=== PATIENT | male | born 1985 | race African-American/Black ===

== ENCOUNTER 2017-09-24 12:52 | Inpatient (IN) | payer SELFPAY ==
[~2017-09-24] VITALS: Ht 188 cm; Wt 176.5 kg
[2017-09-24] MEDS ORDERED: SODIUM CHLORIDE 0.9% 1,000 ML IVB ONE (13:13)
[2017-09-24] MEDS ORDERED: ONDANSETRON HCL 4 MG/2 ML VIAL IV ONE (13:15)
[2017-09-24] MEDS ORDERED: SODIUM CHLORIDE 0.9% 1,000 ML IV ONE ×2 (13:30→17:00)
[2017-09-24 13:59] LABS: Basophils # (auto) 0 uL; Basophils % (auto) 0.1 % (0.0-2.0); Eosinophils # (auto) 0 uL; Eosinophils % (auto) 0.1 % (0.0-7.0); Hematocrit 43.9 % (41.0-53.0); Hemoglobin 15.2 g/dL (13.5-17.5); Lymphocytes # (auto) 0.8 uL; Lymphocytes % (auto) 4.2 % (10.0-50.0); Mean Corpuscular Hemoglobin 29.3 pg (28.0-32.0); Mean Corpuscular Hgb Conc. 34.6 g/dL (32.0-36.0); Mean Corpuscular Volume 84.8 fL (80.0-100.0); Monocytes # (auto) 1.6 uL; Monocytes % (auto) 8.2 % (0.0-12.0); Neutrophils # (auto) 16.5 uL; Neutrophils % (auto) 87.4 % (37.0-80.0); Platelet Count (auto) 219 10^3/uL (140-450); Red Blood Cells 5.17 10^6/uL (4.5-5.90); White Blood Cell 18.9 10^3/uL (4.4-10.8)
[2017-09-24 14:15] LABS: INR 1.03 (0.9-1.15)
[2017-09-24 14:18] LABS: Albumin 3.6 g/dL (3.4-5.0); Calcium 8.6 mg/dL (8.5-10.1); Magnesium 1.7 mg/dL (1.6-2.6); Potassium 4.2 mmol/L (3.5-5.1)
[2017-09-24 14:21] LABS: Bilirubin, Total 1.4 mg/dL (0.2-1.0); Total Protein 7.7 g/dL (6.4-8.2)
[2017-09-24] MEDS ORDERED: metroNIDAZOLE 500MG/100ML 100 ML IV ONE (15:00)
[2017-09-24 16:12] LABS: Urine Amorphous Crystal FEW /hpf (None Seen); Urine Bacteria NONE SEEN /hpf (None Seen); Urine Blood Negative /uL (Negative); Urine Mucus FEW (None Seen); Urine Specific Gravity 1.033 (1.001-1.035); Urine WBC 1 /hpf (0 - 3)
[2017-09-24] MEDS ORDERED: MORPHINE SULF INJ 2 MG/ML SYRINGE 1ML IV PRN (17:00)
[2017-09-24] MEDS ORDERED: NITROGLYCERIN 0.4 MG SL TAB SL PRN (17:00)
[2017-09-24] MEDS ORDERED: TEMAZEPAM 15 MG CAP PO PRN (17:00)
[2017-09-24] MEDS ORDERED: LEVOFLOXACIN 500MG 100 ML IV ONE (17:00)
[2017-09-24] MEDS ORDERED: DOCUSATE SOD 100 MG CAP PO PRN (17:00)
[2017-09-24] MEDS ORDERED: ONDANSETRON HCL 4 MG/2 ML VIAL IV PRN (17:00)
[2017-09-24] MEDS ORDERED: ACETAMINOPHEN 325 MG TAB PO PRN ×2 (17:00)
[2017-09-24 17:47] VITALS: BP 121/72
[2017-09-24 17:54] LABS: Lactic Acid w/Reflex 2.7 mmol/L (0.4-2.0)
[2017-09-24] MEDS: SODIUM CHLORIDE 0.9% 1,000 ML IV SCH (18:38)
[2017-09-24 18:50] VITALS: BP 105/55
[2017-09-24] MEDS: ALBUTEROL SULF 2.5 MG/0.5ML(0.5%) NEB SOLN NEB SCH ×2 (18:50→23:30)
[2017-09-24] MEDS ORDERED: ALBUAER3 IN (19:43)
[2017-09-24] MEDS: HYDROcodone-ACET 5/325MG TAB PO PRN (19:58)
[2017-09-24 21:53] VITALS: BP 119/70
[2017-09-24] MEDS: metroNIDAZOLE 500MG/100ML 100 ML IV SCH (22:00)
[2017-09-24] MEDS: FAMOTIDINE 20 MG TAB PO SCH (23:10)
[2017-09-25] MEDS: HYDROcodone-ACET 5/325MG TAB PO PRN ×2 (01:17→10:11)
[2017-09-25] MEDS: SODIUM CHLORIDE 0.9% 1,000 ML IV SCH ×3 (01:20→18:54)
[2017-09-25] MEDS: metroNIDAZOLE 500MG/100ML 100 ML IV SCH ×3 (04:23→20:30)
[2017-09-25 04:53] VITALS: BP 138/78
[2017-09-25 05:48] LABS: Basophils # (auto) 0 uL; Basophils % (auto) 0.1 % (0.0-2.0); Eosinophils # (auto) 0 uL; Hematocrit 42.3 % (41.0-53.0); Hemoglobin 14.3 g/dL (13.5-17.5); Lymphocytes # (auto) 1.1 uL; Lymphocytes % (auto) 7.1 % (10.0-50.0); Mean Corpuscular Hgb Conc. 33.8 g/dL (32.0-36.0); Mean Corpuscular Volume 85.9 fL (80.0-100.0); Monocytes % (auto) 6.3 % (0.0-12.0); Neutrophils # (auto) 13.7 uL; Neutrophils % (auto) 86.5 % (37.0-80.0); Platelet Count (auto) 195 10^3/uL (140-450); Red Blood Cells 4.93 10^6/uL (4.5-5.90); Red Cell Distribution Width 14.5 % (11.8-14.3); White Blood Cell 15.9 10^3/uL (4.4-10.8)
[2017-09-25 06:02] LABS: Calcium 7.9 mg/dL (8.5-10.1); Potassium 3.9 mmol/L (3.5-5.1)
[2017-09-25 06:05] LABS: BUN/Creatinine Ratio 8.9
[2017-09-25 06:08] LABS: Bilirubin, Total 1.8 mg/dL (0.2-1.0); Total Protein 6.8 g/dL (6.4-8.2)
[2017-09-25] MEDS: ALBUTEROL SULF 2.5 MG/0.5ML(0.5%) NEB SOLN NEB SCH ×3 (06:15→19:06)
[2017-09-25 09:17] VITALS: BP 142/82
[2017-09-25] MEDS: FAMOTIDINE 20 MG TAB PO SCH ×2 (10:11→22:00)
[2017-09-25] MEDS: MULTIPLE VITAMIN TAB PO SCH (10:11)
[2017-09-25] MEDS: LEVOFLOXACIN 500MG 100 ML IV SCH (10:11)
[2017-09-25] MEDS: Glucerna Carbsteady SHAKE Vanilla 8oz PO SCH ×2 (12:17→18:54)
[2017-09-25 12:50] VITALS: BP 143/75
[2017-09-25] MEDS: MORPHINE SULFATE 4 MG/ML SYR/VIAL IV PRN ×2 (15:18→21:41)
[2017-09-25 17:16] VITALS: BP 152/87
[2017-09-25 22:00] VITALS: BP 147/92
[2017-09-26] MEDS: ALBUTEROL SULF 2.5 MG/0.5ML(0.5%) NEB SOLN NEB SCH ×3 (00:07→11:21)
[2017-09-26] MEDS ORDERED: IBUPROFEN 400 MG TAB PO ONE (01:30)
[2017-09-26] MEDS: SODIUM CHLORIDE 0.9% 1,000 ML IV SCH ×2 (02:20→08:53)
[2017-09-26] MEDS: metroNIDAZOLE 500MG/100ML 100 ML IV SCH ×2 (04:00→11:53)
[2017-09-26 05:14] VITALS: BP 122/79
[2017-09-26 06:03] LABS: Basophils # (auto) 0 uL; Basophils % (auto) 0.2 % (0.0-2.0); Eosinophils # (auto) 0 uL; Eosinophils % (auto) 0.3 % (0.0-7.0); Hematocrit 41.8 % (41.0-53.0); Hemoglobin 14.4 g/dL (13.5-17.5); Lymphocytes # (auto) 1.9 uL; Lymphocytes % (auto) 21.5 % (10.0-50.0); Mean Corpuscular Hemoglobin 29.6 pg (28.0-32.0); Mean Corpuscular Hgb Conc. 34.5 g/dL (32.0-36.0); Mean Corpuscular Volume 85.7 fL (80.0-100.0); Monocytes # (auto) 1.4 uL; Monocytes % (auto) 16.7 % (0.0-12.0); Neutrophils # (auto) 5.3 uL; Neutrophils % (auto) 61.3 % (37.0-80.0); Nucleated Red Blood Cells % 0.1 %; Platelet Count (auto) 190 10^3/uL (140-450); Red Blood Cells 4.87 10^6/uL (4.5-5.90); Red Cell Distribution Width 14.2 % (11.8-14.3); White Blood Cell 8.7 10^3/uL (4.4-10.8)
[2017-09-26 06:19] LABS: BUN/Creatinine Ratio 6.8; Calcium 8.5 mg/dL (8.5-10.1); Potassium 4.1 mmol/L (3.5-5.1)
[2017-09-26] MEDS: Glucerna Carbsteady SHAKE Vanilla 8oz PO SCH ×2 (08:54→11:56)
[2017-09-26 09:00] VITALS: BP 149/97
[2017-09-26] MEDS: FAMOTIDINE 20 MG TAB PO SCH (10:07)
[2017-09-26] MEDS: LEVOFLOXACIN 500MG 100 ML IV SCH (10:07)
[2017-09-26] MEDS: MULTIPLE VITAMIN TAB PO SCH (10:07)
[2017-09-26 13:00] VITALS: BP 137/81
[2017-09-26 16:41] VITALS: BP 137/81
[2017-09-26 17:00] VITALS: BP 135/90
== END 2017-09-26 17:08 | disposition home or self-care (01) | DRG 871 ==
LOC: ER 12:52 → EDBD 12:52 → TELE 12:53 → TELE-WESTW 18:04
PROVIDERS: ADMIT Internal Medicine; ATTEND Internal Medicine
DX: A41.9 Sepsis, unspecified organism (principal); N17.0 Acute kidney failure with tubular necrosis; E44.0 Moderate protein-calorie malnutrition; Z68.43 Body mass index [BMI] 50.0-59.9, adult; A08.4 Viral intestinal infection, unspecified; E11.21 Type 2 diabetes mellitus with diabetic nephropathy; E11.22 Type 2 diabetes mellitus with diabetic chronic kidney disease; E66.01 Morbid (severe) obesity due to excess calories; E86.0 Dehydration; F17.210 Nicotine dependence, cigarettes, uncomplicated; J45.909 Unspecified asthma, uncomplicated; K76.0 Fatty (change of) liver, not elsewhere classified; N18.3 Chronic kidney disease, stage 3 (moderate); Z82.49 Family history of ischemic heart disease and other diseases of the circulatory system; Z88.0 Allergy status to penicillin; Z83.6 Family history of other diseases of the respiratory system
CPT/HCPCS: 36415; 71045; 74176; 80048; 80053; 81001; 82150; 83605; 83690; 83735; 85025; 85610; 85730; 87040; 93005; 94640; 94761; 96361; 96365; J1956; J2405; J3490

== ENCOUNTER 2017-09-27 17:11 | Emergency (ER) | payer SELFPAY ==
[~2017-09-27] VITALS: Ht 188 cm; Wt 165.6 kg
[~2017-09-27 17:11] MED LIST: ALBUAER3 IN
[2017-09-27 17:58] LABS: Urine Bacteria NONE SEEN /hpf (None Seen); Urine Blood Negative /uL (Negative); Urine Specific Gravity 1.019 (1.001-1.035); Urine WBC 2 /hpf (0 - 3)
[2017-09-27 18:16] LABS: Basophils # (auto) 0 uL; Basophils % (auto) 0.5 % (0.0-2.0); Eosinophils # (auto) 0.2 uL; Eosinophils % (auto) 3.4 % (0.0-7.0); Hematocrit 47.8 % (41.0-53.0); Hemoglobin 16.1 g/dL (13.5-17.5); Lymphocytes # (auto) 2.2 uL; Lymphocytes % (auto) 34.8 % (10.0-50.0); Mean Corpuscular Hemoglobin 29.2 pg (28.0-32.0); Mean Corpuscular Hgb Conc. 33.8 g/dL (32.0-36.0); Mean Corpuscular Volume 86.5 fL (80.0-100.0); Monocytes # (auto) 0.5 uL; Neutrophils # (auto) 3.3 uL; Neutrophils % (auto) 53.3 % (37.0-80.0); Nucleated Red Blood Cells % 0.2 %; Platelet Count (auto) 277 10^3/uL (140-450); Red Blood Cells 5.52 10^6/uL (4.5-5.90); Red Cell Distribution Width 14.1 % (11.8-14.3); White Blood Cell 6.2 10^3/uL (4.4-10.8)
[2017-09-27 18:38] LABS: Albumin 3.5 g/dL (3.4-5.0); Bilirubin, Total 0.8 mg/dL (0.2-1.0); Calcium 8.3 mg/dL (8.5-10.1); Potassium 3.9 mmol/L (3.5-5.1); Total Protein 8.4 g/dL (6.4-8.2)
[2017-09-27] MEDS ORDERED: traMADol HCL 50 MG TAB PO ONE (20:45)
[2017-09-28] MEDS ORDERED: cefTRIAXone 1GM/10ml IVPUSH 10 ML IV ONE (01:00)
[2017-09-28 01:26] VITALS: BP 106/68
== END 2017-09-28 02:27 | disposition home or self-care (01) ==
LOC: ER 17:15
DX: J01.90 Acute sinusitis, unspecified (principal); J45.909 Unspecified asthma, uncomplicated; F17.210 Nicotine dependence, cigarettes, uncomplicated
CPT/HCPCS: 36415; 70450; 80053; 81001; 85025; 93005; 96374; 99285; J0696

== ENCOUNTER 2023-04-18 23:25 | Emergency (ER) | payer OTHER ==
[~2023-04-18] VITALS: Ht 188 cm; Wt 128.0 kg
[2023-04-19 00:21] LABS: Urine Bacteria NONE SEEN /hpf (None Seen); Urine Blood Negative /uL (Negative); Urine Clarity Clear (Clear); Urine Color Yellow (Yellow); Urine Hyaline Cast FEW /lpf (0 - 2); Urine Mucus FEW (None Seen); Urine Protein, UAD 1+ (Negative); Urine Specific Gravity 1.024 (1.001-1.035); Urine Urobilinogen Normal (Negative); Urine WBC 1 /hpf (0 - 3); Urine pH 5.5 (5.0-8.0)
[2023-04-19 00:38] LABS: Basophils # (auto) 0 10 ^3/uL (0-0.2); Basophils % (auto) 0.3 % (0.0-2.0); Eosinophils # (auto) 0.1 10 ^3/uL (0-0.8); Eosinophils % (auto) 1.9 % (0.0-7.0); Hematocrit 48.1 % (41.0-53.0); Hemoglobin 16.4 g/dL (13.5-17.5); Lymphocytes # (auto) 4.3 10 ^3/uL (0.4-5.4); Lymphocytes % (auto) 54.7 % (10.0-50.0); Mean Corpuscular Hemoglobin 28.5 pg (28.0-32.0); Mean Corpuscular Volume 83.8 fL (80.0-100.0); Monocytes # (auto) 0.5 10 ^3/uL (0-1.3); Monocytes % (auto) 6.6 % (0.0-12.0); Neutrophils # (auto) 2.9 10 ^3/uL (1.6-8.6); Neutrophils % (auto) 36.5 % (37.0-80.0); Nucleated Red Blood Cells % 0.1 %; Red Blood Cells 5.74 10^6/uL (4.5-5.90); Red Cell Distribution Width 13.7 % (11.8-14.3); White Blood Cell 7.8 10^3/uL (4.4-10.8)
[2023-04-19 00:48] LABS: Anion Gap 6 (5-15); Carbon Dioxide 25 mmol/L (20-30); Chloride 102 mmol/L (98-107); Potassium 4.2 mmol/L (3.5-5.1); Sodium 133 mmol/L (136-145)
[2023-04-19 00:49] LABS: Calcium 9.3 mg/dL (8.7-10.4)
[2023-04-19 00:54] LABS: BUN/Creatinine Ratio 6.7 (10.0-20.0); Blood Urea Nitrogen 7 mg/dL (9-23); Glucose 292 mg/dL (74-106)
[2023-04-19 01:40] VITALS: BP 142/93; TEMP 97.6
[2023-04-19 01:45] VITALS: PULSE 96; RESP 18; O2SAT 98
[2023-04-19] MEDS: KETOROLAC TROMETH 60MG/2ML VIAL IM ONE (01:46)
== END 2023-04-19 01:45 | disposition home or self-care (01) ==
LOC: ER 23:25
DX: R10.9 Unspecified abdominal pain (principal); J45.909 Unspecified asthma, uncomplicated; F17.210 Nicotine dependence, cigarettes, uncomplicated; Z88.8 Allergy status to other drugs, medicaments and biological substances; Z79.899 Other long term (current) drug therapy
CPT/HCPCS: 36415; 74176; 80048; 81001; 85025; 96372; 99285; J1885